=== PATIENT | female | born 1980 | race Caucasian/White ===

== ENCOUNTER 2018-09-28 09:04 | Emergency (ER) | payer OTHER ==
[~2018-09-28] VITALS: Ht 160 cm; Wt 56.7 kg
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
--- NOTE | 2018-09-28 11:06 | RAD ---
EXAM: CT left hip DATE: 09/28/2018 10:24 AM COMPARISON: Pelvis and hip x-rays 09/28/2018 INDICATION: Possible fracture, abnormal x-ray. Left hip pain. TECHNIQUE: CT of the left hip was performed without IV contrast. 2-D reformatted sagittal and coronal images were created at the CT console workstation. PQRS compliance statement - One or more of the following individualized dose reduction techniques were utilized for this study: 1. Automated exposure control 2. Adjustment of the mA and/or kV according to patient size 3. Use of iterative reconstruction technique FINDINGS: No definite left hip fracture is identified. The abnormality on prior radiograph may be artifactual. Left hip joint spaces grossly preserved without significant degenerative/proliferative change. Small rounded lucency within the left femoral head/neck likely synovial herniation pit. Visualized marginal portion of the intrapelvic contents is grossly unremarkable. IMPRESSION: No left hip fracture is identified. Electronically signed by: Dio Wilcox MD (09/28/2018 11:03 AM) [facility]
[2018-09-28 11:15] VITALS: BP 116/70
== END 2018-09-28 11:23 | disposition home or self-care (01) ==
LOC: ER 09:33
DX: M25.552 Pain in left hip (principal); M54.5 Low back pain; G89.11 Acute pain due to trauma; V49.49XA Driver injured in collision with other motor vehicles in traffic accident, initial encounter; Y93.I9 Activity, other involving external motion; Y92.481 Parking lot as the place of occurrence of the external cause; Y99.8 Other external cause status
CPT/HCPCS: 72100; 73502; 73700; 99284-25